=== PATIENT | male | born 1945 | race Caucasian/White ===

== ENCOUNTER 2022-09-09 19:49 | Inpatient (IN) | payer MEDICARE, BC ==
[~2022-09-09] VITALS: Ht 160 cm; Wt 87.1 kg
--- NOTE | 2022-09-09 20:00 | NUR ---
EMT AT PT'S BEDSIDE FOR EKG
--- NOTE | 2022-09-09 20:00 | NUR ---
[id number] FROM HOME C/O COUGH & FEVER X1 DAY. UPON TRIAGE TEMP 98.7. PATIENT IS AAOX4. ABLE TO MAKE NEEDS KNOWN. - RESP DISTRESS. ATTACHED TO MONITOR. VITALS CHECKED.
--- NOTE | 2022-09-09 20:02 | NUR ---
CARTON STAPLER AT PT'S BEDSIDE
--- NOTE | 2022-09-09 20:10 | NUR ---
IV CANNULA G20 INSERTED ON LEFT FA. BLOOD DRAWN AND SENT TO LAB
--- NOTE | 2022-09-09 20:11 | NUR ---
[facility] NUMBER [phone]
--- NOTE | 2022-09-09 20:20 | NUR ---
LOG ROPER AT PT'S BEDSIDE
--- NOTE | 2022-09-09 20:39 | NUR ---
MOVE SHEET SUBMITTED
--- NOTE | 2022-09-09 20:50 | NUR ---
URINE SPECIMEN SENT TO LAB
[2022-09-09 20:56] LABS: ALANINE AMINOTRANSFERASE 21 U/L (12-78); ALBUMIN 3.8 g/dL (3.4-5.0); ALKALINE PHOSPHATASE 64 U/L (46-116); ASPARTATE AMINOTRANSFERASE 26 U/L (15-37); BILIRUBIN,DIRECT 0.1 mg/dL (0.0-0.2); BILIRUBIN,TOTAL 0.7 mg/dL (0.2-1.0); CALCIUM, SERUM 8.7 mg/dL (8.5-10.1); CARBON DIOXIDE 24 mmol/L (21-32); CHLORIDE 102 mmol/L (98-107); GLUCOSE 190 mg/dL (74-106); POTASSIUM 4.5 mmol/L (3.5-5.1); SODIUM SERUM 137 mmol/L (136-145); TOTAL PROTEIN, SERUM 7.2 g/dL (6.4-8.2); UREA NITROGEN, BLOOD 29 mg/dL (7-18)
[2022-09-09 21:10] LABS: BASOPHILS % (AUTO) 0.1 % (0.0-2.0); EOSINOPHILS % (AUTO) 0.1 % (0.0-6.0); HEMATOCRIT 40 % (39-51); HEMOGLOBIN 12.8 g/dL (13.5-17.5); LYMPHOCYTES # (AUTO) 1.1 K/uL (0.8-4.8); LYMPHOCYTES % (AUTO) 6.5 % (20.0-44.0); MEAN CORPUSCULAR HGB CONC 32 g/dl (31.0-36.0); MEAN CORPUSCULAR VOLUME 79 fL (80-96); MONOCYTES % (AUTO) 5.9 % (2.0-12.0); NEUTROPHILS # (AUTO) 15.3 K/uL (1.8-8.9); NEUTROPHILS % (AUTO) 87.4 % (43.0-81.0); PLATELET COUNT (AUTO) 127 K/uL (150-450); RED BLOOD CELL COUNT(AUTO) 5.05 MIL/uL (4.5-6.0); WHITE BLOOD COUNT (AUTO) 17.5 K/uL (4.3-11.0)
[2022-09-09 21:17] LABS: BILIRUBIN,URINE NEGATIVE (NEGATIVE); COLOR,URINE YELLOW (YELLOW); LEUKOCYTE ESTERASE ,URINE NEGATIVE (NEGATIVE); NITRITE, URINE NEGATIVE (NEGATIVE); PH,URINE 5.5 (5.0-8.0); PROTEIN,URINE NEGATIVE (NEGATIVE); UGLUCOSE >=1000 mg/dL (NEGATIVE); UROBILINOGEN,URINE 0.2 EU/dL (0.2)
[2022-09-09 21:48] LABS: BACTERIA,URINE Few /HPF (None Seen); RBC,URINE 0-2 /HPF (0-2); SQUAMOUS EPITHELIAL CELL,UR Few /HPF (None Seen); WBC,URINE 0-2 /HPF (0-3)
--- NOTE | 2022-09-09 22:12 | NUR ---
UPDATE GIVEN TO DAUGHTER CARMELITA [phone]
[2022-09-09] MEDS ORDERED: MORPHINE SULFATE INJ 2 MG/ML DISP.SYRIN IV PRN (22:30)
[2022-09-09] MEDS ORDERED: DOCUSATE SODIUM 100 MG CAPSULE PO PRN (22:30)
[2022-09-09] MEDS ORDERED: ONDANSETRON HCL/PF 4 MG/2 ML VIAL IVP PRN (22:30)
[2022-09-09] MEDS ORDERED: MAG HYDROX/AL HYDROX/SIMETH 30 ML UDC PO PRN (22:30)
[2022-09-09] MEDS ORDERED: ACETAMINOPHEN 325 MG TABLET PO PRN (22:30)
[2022-09-09] MEDS ORDERED: NITROGLYCERIN 0.4 MG/TAB BOTTLE SL PRN (22:30)
[2022-09-09] MEDS ORDERED: methylPREDNISolone SOD SUCC 40 MG/ML VIAL IV ONE (22:30)
--- NOTE | 2022-09-09 22:45 | NUR ---
POLITICAL SCIENCE CHAIR AT BEDSIDE
[2022-09-10] MEDS ORDERED: CEFTRIAXONE 1GM BAG (ER ONLY) 50 ML IV ONE (03:47)
--- NOTE | 2022-09-10 03:50 | NUR ---
COVID PCR DONE AND SENT TO LAB
[2022-09-10] MEDS: CEFTRIAXONE 1 G in IV D5W 50 ML IV SCH (03:58)
[2022-09-10] MEDS ORDERED: methylPREDNISolone SOD SUCC 40 MG/ML VIAL ONE (03:59)
--- NOTE | 2022-09-10 04:11 | NUR ---
ASTRO TECHNICIAN AT BEDSIDE
[2022-09-10 05:06] LABS: BASOPHILS % (AUTO) 0.2 % (0.0-2.0); HEMATOCRIT 38 % (39-51); HEMOGLOBIN 12.1 g/dL (13.5-17.5); LYMPHOCYTES # (AUTO) 1.5 K/uL (0.8-4.8); LYMPHOCYTES % (AUTO) 7.3 % (20.0-44.0); MEAN CORPUSCULAR HGB CONC 32 g/dl (31.0-36.0); MEAN CORPUSCULAR VOLUME 79 fL (80-96); MONOCYTES # (AUTO) 1.3 K/uL (0.1-1.30); MONOCYTES % (AUTO) 6.1 % (2.0-12.0); NEUTROPHILS # (AUTO) 18.3 K/uL (1.8-8.9); NEUTROPHILS % (AUTO) 86.4 % (43.0-81.0); PLATELET COUNT (AUTO) 135 K/uL (150-450); RED BLOOD CELL COUNT(AUTO) 4.86 MIL/uL (4.5-6.0); WHITE BLOOD COUNT (AUTO) 21.2 K/uL (4.3-11.0)
--- NOTE | 2022-09-10 05:18 | NUR ---
ADLS DONE. PT AMBULATED TO RESTROOM WITH STEADY GAIT VIA 1-PERSON ASSISTANCE. ALL NEEDS MET AT THIS TIME. PT KEPT CLEAN AND DRY. SKIN INTACT. SAFETY MEASURES IN PLACE.
[2022-09-10 05:32] LABS: THYROID STIMULATING HORMONE 1.616 uIU/mL (0.358-3.74)
[2022-09-10 05:33] LABS: ALBUMIN 3.3 g/dL (3.4-5.0); BILIRUBIN,TOTAL 0.8 mg/dL (0.2-1.0); CALCIUM, SERUM 8.4 mg/dL (8.5-10.1); CREATININE 1.3 mg/dL (0.6-1.3); MAGNESIUM 1.9 mg/dL (1.8-2.4); PHOSPHORUS 3.7 mg/dL (2.5-4.9); TOTAL PROTEIN, SERUM 6.4 g/dL (6.4-8.2)
--- NOTE | 2022-09-10 06:39 | NUR ---
F/U WITH LAB FOR COVID PCR. PER ANIBAL CONSTRUCTION PROJECT MANAGER, COVID PCR SWAB WAS RECIEVED.
[2022-09-10] MEDS: ALBUTEROL FS 2.5 MG/0.5 ML VIAL.NEB NEB SCH ×5 (07:35→19:30)
[2022-09-10] MEDS: IPRATROPIUM NEB FS 0.5 MG/2.5 ML AMPUL.NEB NEB SCH ×5 (07:35→19:30)
[2022-09-10] MEDS ORDERED: ASPIRIN 81 MG TAB.CHEW ONE (07:41)
[2022-09-10] MEDS: ASPIRIN 81 MG TAB.CHEW PO SCH (07:42)
--- NOTE | 2022-09-10 07:46 | NUR ---
BED ASSIGNED= 107
--- NOTE | 2022-09-10 08:09 | NUR ---
TRANSFERRED PATIENT TO BED 107 IN STABLE CONDITION
--- NOTE | 2022-09-10 08:30 | NUR ---
CONCRETE FINISHER APPRENTICE NOTE RECEIVED PATIENT FROM ER WITH DX CP AND RESPIRATORY FAILURE,ALERT ORIENTED X4 ,ON RA, NO SOB NOTED, ON TELE MONITOR SR HR 70, RT FA HL INTACT AND FLUSHED WELL , BED IN LOWEST AND LOCKED POSITION,CALL LIGHT WITHIN REACH ,PLAN OF CARE DISCUSSED WITTIEST , BELONGING CHECKED BY BRITTANY PRETTY , SAFETY MEASURE PROVIDED,WILL CONT TO MONITOR VS TAKEN ,
[2022-09-10] MEDS ORDERED: LOSA50TA39 PO (08:31)
[2022-09-10] MEDS ORDERED: SERT50TA12 PO (08:31)
[2022-09-10] MEDS ORDERED: CLOP75TA15 PO (08:31)
[2022-09-10] MEDS ORDERED: EMPA25TA PO (08:31)
[2022-09-10] MEDS ORDERED: PANT40TA49 PO (08:31)
[2022-09-10] MEDS ORDERED: ASPI-1169 PO (08:31)
[2022-09-10] MEDS ORDERED: METF-441 PO (08:31)
[2022-09-10] MEDS ORDERED: ATEN25TA PO (08:31)
[2022-09-10] MEDS ORDERED: GLIP5TAB13 PO (08:31)
[2022-09-10] MEDS ORDERED: GLIP10TA11 PO (08:31)
[2022-09-10] MEDS ORDERED: AMLO-212 PO (08:31)
[2022-09-10] MEDS ORDERED: ATOR40TA PO (08:31)
[2022-09-10] MEDS ORDERED: FERR325T23 PO (08:31)
[2022-09-10 08:32] VITALS: BP 121/48
[2022-09-10] MEDS: CLOPIDOGREL BISULFATE 75 MG TABLET PO SCH (09:20)
--- NOTE | 2022-09-10 11:28 | NUR ---
TEACHER PRIVATE NOTE 2DECHO DONE NOT IN DISTRESS
[2022-09-10 12:00] VITALS: BP 115/50
[2022-09-10] MEDS: methylPREDNISolone SOD SUCC 40 MG/ML VIAL IV SCH ×2 (12:44→21:10)
--- NOTE | 2022-09-10 13:00 | NUR ---
ASSISTANT REFINERY OPERATOR NOTE ASSISTED TO BR ,ABLE TO URINATE WELL MALL NEEDS ATTENDED, CALL LIGHT WITHIN REACH
[2022-09-10 16:00] VITALS: BP 112/44
--- NOTE | 2022-09-10 17:00 | NUR ---
SALVAGE DETERMINER NOTE ON BREATHING TX, ALL NEEDS ATTENDED ,WILL MONITOR
--- NOTE | 2022-09-10 18:36 | NUR ---
DIRECTOR PERIOPERATIVE NOTE PATENT IN BED, ALERT ORIENTED, ON TELE MONITOR SR HR 77, ON 2L NC , SOB NOTED AT THIS TIME,BED IN LOWEST AND LOCKED POSITION ,ABLE TO GO BR AND URINATE WELL, RT FA HL IN PLACE AND FLUSHED WELL , CALL LIGHT WITHIN REACH , SAFETY MEASURE IMPLEMENTED, WILL CONT TO MONITOR CLOSELY
[2022-09-10 20:00] VITALS: BP 122/60
--- NOTE | 2022-09-10 20:15 | NUR ---
RT NOTE TX HELD DUE TO PCR PENDING COVID PROTOCOL.
[2022-09-10] MEDS: SIMVASTATIN 20 MG TABLET PO SCH (21:10)
--- NOTE | 2022-09-10 23:43 | NUR ---
FINANCIAL RISK MANAGER OPENING NOTE PT RECEIVED IN BED, AWAKE, A&O X4, MAINLY NIGERIEN-SPEAKING BUT ABLE TO SPEAK SOME ITALIAN. PT ON 2L NC WITH CURRENT O2SAT OF 91%; NO S/S OF RESP DISTRESS, NO SOB OR COUGH, NON-LABORED AND EQUAL BREATHING. PT ATTACHED TO EXTERNAL MONITOR SR WITH HR OF 82. IV ACCESS ON RFA 20G, INTACT AND PATENT, FLUSHES EASILY WITH NO RESISTANCE, NO MEDS/FLUIDS INFUSING THROUGH IT. PT NOTED TO BE AMBULATORY WITH STEADY GAIT. BED IN LOWEST POSITION, CALL LIGHT WITHIN REACH, SIDE RAILS UP X2. WILL CONTINUE TO MONITOR THROUGHOUT THE NIGHT.
[2022-09-11] VITALS: BP 129/80
[2022-09-11] MEDS: CEFTRIAXONE 1 G in IV D5W 50 ML IV SCH (03:58)
[2022-09-11 04:00] VITALS: BP 113/54
[2022-09-11] MEDS: methylPREDNISolone SOD SUCC 40 MG/ML VIAL IV SCH ×3 (04:04→21:00)
--- NOTE | 2022-09-11 06:51 | NUR ---
BUSHEL GIRL CLOSING NOTE PT REMAINS IN BED, ASLEEP BUT EASILY AROUSABLE, A&O X4, CALM, COOPERATIVE. CONTINUES TO BE ON 2L NC WITH O2SAT RANGING FROM 91%-94%; NO S/S OF RESP DISTRESS, NO SOB OR COUGH, NON-LABORED AND EQUAL BREATHING. ATTACHED TO EXTERNAL MONITOR, SR WITH HR RANGING FROM 73-82; PT HAD NO COMPLAINT OF CHEST PAIN LAST NIGHT. RFA 20G INTACT AND PATENT, FLUSHES EASILY WITH NO RESISTANCE. ALL DUE MEDS ADMINISTERED DURING THE NIGHT. BED IN LOWEST POSITION, CALL LIGHT WITHIN REACH, SIDE RAILS UP X2. WILL ENDORSE TO DAYSHIFT NURSE TO CONTINUE CARE.
--- NOTE | 2022-09-11 07:11 | NUR ---
STEWARD/STEWARDESS DINING ROOM OPENING NOTE PT RECEIVED IN BED, AWAKE, A&O X4, MAINLY TURKMEN-SPEAKING BUT ABLE TO SPEAK SOME K[place]. PT ON 2L NC WITH CURRENT O2SAT OF 96%; NO S/S OF RESP DISTRESS, NO SOB OR COUGH, NON-LABORED AND EQUAL BREATHING. PT ATTACHED TO EXTERNAL MONITOR SR WITH HR OF 82. IV ACCESS ON RFA 20G, INTACT AND PATENT, FLUSHES EASILY WITH NO RESISTANCE, NO MEDS/FLUIDS INFUSING THROUGH IT. PT NOTED TO BE AMBULATORY WITH STEADY GAIT. BED IN LOWEST POSITION, CALL LIGHT WITHIN REACH, SIDE RAILS UP X2. WILL CONTINUE TO MONITOR THROUGHOUT THE DAY SHIFT AND FALLOW POC.
[2022-09-11] MEDS: IPRATROPIUM NEB FS 0.5 MG/2.5 ML AMPUL.NEB NEB SCH ×4 (07:35→19:30)
[2022-09-11] MEDS: ALBUTEROL FS 2.5 MG/0.5 ML VIAL.NEB NEB SCH ×4 (07:35→19:30)
[2022-09-11 08:00] VITALS: BP 119/57
--- NOTE | 2022-09-11 08:00 | NUR ---
RT Tx not given due to pending COVID 19 results.
[2022-09-11] MEDS: CLOPIDOGREL BISULFATE 75 MG TABLET PO SCH (09:26)
[2022-09-11] MEDS: ASPIRIN 81 MG TAB.CHEW PO SCH (09:26)
[2022-09-11 12:00] VITALS: BP 141/59
[2022-09-11] MEDS ORDERED: DEXTROSE 50%-WATER 50 ML DISP.SYRIN IV PRN (13:00)
[2022-09-11 16:05] VITALS: BP 144/62
[2022-09-11] MEDS: INSULIN REGULAR, HUMAN 100 UNIT/ML 3 ML VIAL SQ PRN ×2 (16:41→22:17)
[2022-09-11] MEDS ORDERED: INSULIN REGULAR, HUMAN 100 UNIT/ML 3 ML VIAL SQ ONE (17:00)
[2022-09-11] MEDS: BLOOD SUGAR DIAGNOSTIC 1 EACH STRIP IN SCH ×2 (17:07→22:17)
--- NOTE | 2022-09-11 17:41 | NUR ---
RN NOTE ACCU CHECK WAS DONE PER SCHEDULE , RBS 457 MG/DL, 10 UNITS WAS ADMINISTERED PER SLIDING SCALE AND CALLED TO THE DR GRAVES , RECEIVED AN ORDER FOR 4 UNITS ADDITIONAL OF REGULAR INSULIN , AND ORDER WAS PLACED FOR GLUCOS BLOOD TEST FOR LABORATORY4 UNITS OF REGULAR INSULIN WAS ADMINISTERED SUBSUT .
--- NOTE | 2022-09-11 18:06 | NUR ---
WINDOWS SYSTEM ADMIN CLOSING NOTE PT IN BED, ASLEEP , A&O X4, CALM, COOPERATIVE. CONTINUES TO BE ON 2L NC WITH O2SAT RANGING FROM 91%-97%; NO S/S OF RESP DISTRESS, NO SOB OR COUGH, NON-LABORED AND EQUAL BREATHING. ATTACHED TO EXTERNAL MONITOR, SR WITH HR RANGING FROM 70-88; PT HAD NO COMPLAINT OF CHEST PAIN. RFA 20G INTACT AND PATENT, FLUSHES EASILY WITH NO RESISTANCE. ALL DUE MEDS ADMINISTERED BED IN LOWEST POSITION, CALL LIGHT WITHIN REACH, SIDE RAILS UP X2. WILL ENDORSE TO NIGHT NURSE TO CONTINUE CARE.
[2022-09-11 20:00] VITALS: BP 138/67
--- NOTE | 2022-09-11 20:57 | NUR ---
COMPUTER RECYCLING WORKER OPENING NOTE PT RECEIVED IN BED, AWAKE, A&O X4, CALM, COOPERATIVE. PT ON 2L NC WITH CURRENT O2SAT OF 95%; NO S/S OF RESP DISTRESS, NO SOB OR COUGH, NON-LABORED AND EQUAL BREATHING. PT ATTACHED TO EXTERNAL MONITOR, SR WITH HR OF 64; PT HAS NO COMPLAINT OF CHEST PAIN. IV ACCESS ON RFA 20G, INTACT AND PATENT, FLUSHES EASILY WITH NO RESISTANCE; NO MEDS/FLUIDS INFUSING THROUGH IT. BED IN LOWEST POSITION, CALL LIGHT WITHIN REACH, SIDE RAILS UP X2. WILL CONTINUE TO MONITOR THROUGHOUT THE NIGHT.
[2022-09-11] MEDS: SIMVASTATIN 20 MG TABLET PO SCH (21:40)
--- NOTE | 2022-09-11 22:15 | NUR ---
RN NOTE PT REFUSED SOLU-MEDROL HE STATES IT CAUSES HIS BG TO INCREASE.
--- NOTE | 2022-09-11 22:18 | NUR ---
RN NOTE PT'S BG AT 2200 WAS 363 MG/DL; PT REFUSED TO HAVE INSULIN.
[2022-09-12] VITALS: BP 134/59
[2022-09-12 04:00] VITALS: BP 133/64
[2022-09-12] MEDS: CEFTRIAXONE 1 G in IV D5W 50 ML IV SCH (05:09)
[2022-09-12] MEDS: methylPREDNISolone SOD SUCC 40 MG/ML VIAL IV SCH (05:19)
--- NOTE | 2022-09-12 06:38 | NUR ---
RN NOTE URINE SPECIMEN RECEIVED FROM PT FOR URINE CULTURE. CALLED LAB FOR PICKUP.
[2022-09-12 06:55] LABS: HEMATOCRIT 37 % (39-51); HEMOGLOBIN 11.8 g/dL (13.5-17.5); LYMPHOCYTES # (AUTO) 1.9 K/uL (0.8-4.8); LYMPHOCYTES % (AUTO) 11.5 % (20.0-44.0); MEAN CORPUSCULAR HGB CONC 32 g/dl (31.0-36.0); MEAN CORPUSCULAR VOLUME 79 fL (80-96); MONOCYTES # (AUTO) 0.7 K/uL (0.1-1.30); MONOCYTES % (AUTO) 4.5 % (2.0-12.0); NEUTROPHILS # (AUTO) 13.8 K/uL (1.8-8.9); PLATELET COUNT (AUTO) 145 K/uL (150-450); RED BLOOD CELL COUNT(AUTO) 4.63 MIL/uL (4.5-6.0); WHITE BLOOD COUNT (AUTO) 16.5 K/uL (4.3-11.0)
[2022-09-12 07:15] LABS: CALCIUM, SERUM 8.7 mg/dL (8.5-10.1); CARBON DIOXIDE 29 mmol/L (21-32); CHLORIDE 101 mmol/L (98-107); CREATININE 1.1 mg/dL (0.6-1.3); GLUCOSE 308 mg/dL (74-106); POTASSIUM 4.3 mmol/L (3.5-5.1); SODIUM SERUM 136 mmol/L (136-145); UREA NITROGEN, BLOOD 31 mg/dL (7-18)
--- NOTE | 2022-09-12 07:27 | NUR ---
REFINERY OPERATOR HELPER CRUDE UNIT CLOSING NOTE PT REMAINS IN BED, ASLEEP BUT EASILY AROUSABLE, A&O X4, CALM, COOPERATIVE. CONTINUES TO BE ON 2L NC WITH O2SAT IN THE HIGH 90S; NO S/S OF RESP DISTRESS, NO SOB OR COUGH, NON-LABORED AND EQUAL BREATHING. ATTACHED TO EXTERNAL MONITOR, SR WITH NO COMPLAINT OF CHEST PAIN LAST NIGHT. RFA 20G INTACT AND PATENT, FLUSHES EASILY WITH NO RESISTANCE. ALL DUE MEDS ADMINISTERED DURING THE NIGHT. BED IN LOWEST POSITION, CALL LIGHT WITHIN REACH, SIDE RAILS UP X2. WILL ENDORSE TO DAYSHIFT NURSE TO CONTINUE CARE.
[2022-09-12] MEDS: ALBUTEROL FS 2.5 MG/0.5 ML VIAL.NEB NEB SCH (07:52)
[2022-09-12] MEDS: IPRATROPIUM NEB FS 0.5 MG/2.5 ML AMPUL.NEB NEB SCH (07:52)
[2022-09-12 08:00] VITALS: BP 121/85
[2022-09-12] MEDS: INSULIN REGULAR, HUMAN 100 UNIT/ML 3 ML VIAL SQ PRN (08:32)
[2022-09-12] MEDS: BLOOD SUGAR DIAGNOSTIC 1 EACH STRIP IN SCH (08:33)
[2022-09-12] MEDS ORDERED: AZIT250T13 PO (08:52)
[2022-09-12] MEDS: ASPIRIN 81 MG TAB.CHEW PO SCH (09:11)
[2022-09-12] MEDS: CLOPIDOGREL BISULFATE 75 MG TABLET PO SCH (09:11)
== END 2022-09-12 11:20 | disposition home or self-care (01) | DRG 865 ==
LOC: ER 20:00 → TRANSITION 09-10 02:32 → TELE1 09-10 07:47
PROVIDERS: ADMIT Registered Nurse; ATTEND Internal Medicine
DX: B34.9 Viral infection, unspecified (principal); J96.01 Acute respiratory failure with hypoxia; E66.2 Morbid (severe) obesity with alveolar hypoventilation; J20.9 Acute bronchitis, unspecified; I25.10 Atherosclerotic heart disease of native coronary artery without angina pectoris; Z20.822 Contact with and (suspected) exposure to COVID-19; Z79.02 Long term (current) use of antithrombotics/antiplatelets; Z79.82 Long term (current) use of aspirin; E11.9 Type 2 diabetes mellitus without complications; I10 Essential (primary) hypertension; R79.89 Other specified abnormal findings of blood chemistry; Z68.39 Body mass index [BMI] 39.0-39.9, adult; D72.829 Elevated white blood cell count, unspecified; E88.09 Other disorders of plasma-protein metabolism, not elsewhere classified; Z95.5 Presence of coronary angioplasty implant and graft
CPT/HCPCS: 36415; 71045-TC; 80048-TC; 80053-TC; 80076-TC; 81001; 82945-TC; 82962-TC; 83735-TC; 83880; 84100-TC; 84443-TC; 84484-TC; 85025-TC; 85378-TC; 87040-TC; 87086-TC; 93307-TC; 94799-TC; C9803; G0378; J0696; J1815; J2405; J2920; J7050; J7060; U0003